=== PATIENT | male | born 1990 | race Hispanic/Latino ===

== ENCOUNTER 2023-01-01 11:04 | Emergency (ER) | payer SELFPAY | END 2023-01-01 12:46 | disposition home or self-care (01) | LOC: CSHERS 11:04 | DX: H61.22 Impacted cerumen, left ear (principal); F17.210 Nicotine dependence, cigarettes, uncomplicated | CPT/HCPCS: 99283 ==

== ENCOUNTER 2023-06-04 18:59 | Emergency (ER) | payer SELFPAY | END 2023-06-04 19:55 | disposition home or self-care (01) | LOC: CSHERS 18:59 | DX: R19.7 Diarrhea, unspecified (principal); M54.50 Low back pain, unspecified; F17.210 Nicotine dependence, cigarettes, uncomplicated | CPT/HCPCS: 99283 ==